=== PATIENT | female | born 1990 | race Caucasian/White ===

== ENCOUNTER 2017-11-25 23:01 | Emergency (ER) | payer BC ==
[2017-11-25 23:09] VITALS: BP 107/91
[2017-11-25] MEDS ORDERED: ACETAMINOPHEN 500 MG TAB PO ONE (23:25)
--- NOTE | 2017-11-25 23:27 | EDPHY ---
H & P Stated Complaint: HIT IN HEAD WITH SOFTBALL 9PM, NO LOC, FEELS NAUSEA AND DIZZY Time Seen by Provider: 11/25/17 23:04 HPI/ROS: CC: Hit in head with a softball 2 hours ago HPI: This 26-year-old female with no significant past medical history presents with her host-mother after being hit in the head with a softball approximately 2 hours ago. She is on a slow pitch softball league and was running to [facility] [place] when someone threw the ball and it struck her on the left side of the head. She did not lose consciousness. She did not fall to the ground. She had transient blurred vision but this has resolved. She has no blood from her ear. No lacerations on her scalp. She has lateral neck pain but no midline neck pain. She has a headache which she rates at 4/10. No longer dizzy. She is mildly nauseated but has not had vomiting. She has been using an ice pack on her scalp. She has not taken any medication for her headache. She has not been ill recently. REVIEW OF SYSTEMS: Eyes: No discharge. ENT: See HPI Gastrointestinal: No vomiting. Musculoskeletal: No back pain. Skin: No lacerations. Neurological: See HPI. Source: Patient Exam Limitations: No limitations - Personal History Current Tetanus/Diphtheria Vaccine: Yes - Medical/Surgical History PMH: PMH: Mild exercise induced asthma PSH: Right ankle surgery, tonsillectomy, wisdom teeth surgery Allergies: Amoxicillin Meds: OC, Albuterol MDI PCP: Dr. Mic Zuleta, [facility] Hx Asthma: No Hx Chronic Respiratory Disease: No Hx Diabetes: No Hx Cardiac Disease: No Hx Renal Disease: No Hx Cirrhosis: No Hx Alcoholism: No Hx HIV/AIDS: No Hx Splenectomy or Spleen Trauma: No Other PMH: RIGHT TIBIA SURG, TONSILS - Social History Smoking Status: Never smoked Alcohol Use: Rarely Drug Use: None - Physical Exam Exam: General Appearance: Alert, mild distress. Head: Mild STS left parietal region. No open wounds. No bony step-off. Eyes: Pupils equal and round no pallor or injection. ENT, Mouth: Bilateral TMs wnl. No hemotympanum. EAC nml bilaterally. Mucous membranes are moist. Neck: Minimal left paraspinal tenderness to palpation. No midline tenderness. Respiratory: There are no retractions, lungs are clear to auscultation. Cardiovascular: Regular rate and rhythm. Gastrointestinal: Non distended. Neurological: Awake and alert, sensory and motor exams grossly normal. Skin: Warm and dry. Musculoskeletal: Neck is supple nontender. Extremities are symmetrical, full range of motion. Psychiatric: Patient is oriented X 3, there is no agitation. DIFFERENTIAL DIAGNOSIS: After history and physical exam differential diagnosis was considered for but not limited to: head contusion, closed head injury, skull fracture, SAH, epidural hematoma, subdural hematoma, neck injury Constitutional: Initial Vital Signs Temperature (C) 98.2 F 11/25/17 23:06 Heart Rate 76 11/25/17 23:06 Respiratory Rate 18 11/25/17 23:06 Blood Pressure 107/91 H 11/25/17 23:06 O2 Sat (%) 95 11/25/17 23:06 O2 Delivery Mode Room Air Allergies/Adverse Reactions: amoxicillin Allergy (Verified 11/25/17 23:06) Home Medications: Medication Instructions Recorded Jessica 3 mg-0.02 mg Tablet 11/25/17 Medical Decision Making ED Course/Re-evaluation: The patient was seen and examined. Vital signs reviewed. Criteria for head CT was reviewed with patient. She did have a headache and nausea so I offered her a head CT but told her I thought she would be fine with just observation and returning if symptoms worsened. She elected for observation. We gave her Tylenol for her headache and Zofran for her nausea. She will follow up with her primary care provider if needed or return to the emergency room sooner if any problems or concerns as discussed. - Data Points Medications Given: Discontinued Medications Acetaminophen (Tylenol) 1,000 mg PO EDNOW ONE Stop: 11/25/17 23:26 Last Admin: 11/25/17 23:30 Dose: 1,000 mg Departure - Departure Disposition: Home, Routine, Self-Care Clinical Impression: Head injury, acute, without loss of consciousness Qualifiers: Encounter type: initial encounter Qualified Code(s): S09.90XA - Unspecified injury of head, initial encounter Condition: Good Instructions: Head Injury (ED) Additional Instructions: Follow up with Dr. Mic Zuleta, [facility] as needed. Return to the ER if any problems or concerns as discussed.
[2017-11-25] MEDS ORDERED: ONDANSETRON 4MG PREPACK#2 BTL TAKEHOME ONE ×2 (23:33→23:34)
== END 2017-11-25 23:57 | disposition home or self-care (01) ==
LOC: CED 23:01
DX: S09.90XA Unspecified injury of head, initial encounter (principal); W21.07XA Struck by softball, initial encounter; Y99.8 Other external cause status; Y93.02 Activity, running

== ENCOUNTER → 2017-12-14 | Outpatient (CLI) | payer BC | LOC: FCPNEURO 21:00 | PROVIDERS: ATTEND Student in an Organized Health Care Education/Training Program | DX: G47.33 Obstructive sleep apnea (adult) (pediatric) (principal) ==